=== PATIENT | female | born 1975 | race Hispanic/Latino ===

== ENCOUNTER 2017-07-16 17:52 | Emergency (ER) | payer OTHER ==
[2017-07-16] MEDS ORDERED: NACL 0.9% 1000 ML 1,000 ML IV ONE (21:17)
--- NOTE | 2017-07-16 21:30 | Emergency Department Report ---
ED General Adult HPI - General Chief complaint: Upper Respiratory Infection Stated complaint: SICK FEVER, CHILLS, GENERAL SICKNESS Time Seen by Provider: 07/16/17 20:56 Source: patient Mode of arrival: Ambulatory Limitations: No Limitations - History of Present Illness Initial comments: PT c/o being sick for three days. PT states she is here for antibiotics. PT states she has had fevers and chills for two days. PT states her Tmax was 103.3. PT states she was taking Motrin and Theraflu for her symptoms, did not take any today. PT states today she started having diarrhea, multiple episodes of watery diarrhea. PT reports decrease in appetite, back ache ("from laying in bed for a day and a half") and dark urine. PT states her urine "feels hot" when it comes out. She states it feels hot due to her fever. PT denies dysuria. MD Complaint: fever -: Gradual, days(s) (3) Location: back Severity scale (0 -10): 10 Quality: aching (entire body hurts) Improves with: medication Associated Symptoms: fever/chills, loss of appetite, malaise, nausea/vomiting. denies: chest pain Treatments Prior to Arrival: none - Related Data Previous Rx's Medication Instructions Recorded Last Taken Type Penicillin Vk [Veetids TAB] 500 mg PO QID #40 tablet 04/07/13 Unknown Rx traMADol [Ultram 50 MG tab] 50 mg PO Q6HR PRN #12 tablet 04/07/13 Unknown Rx Allergies Allergy/AdvReac Type Severity Reaction Status Date / Time No Known Allergies Allergy Unverified 04/07/13 15:22 ED Review of Systems ROS: Stated complaint: SICK FEVER, CHILLS, GENERAL SICKNESS Other details as noted in HPI Comment: All other systems reviewed and negative Constitutional: chills, fever, malaise ENT: congestion. denies: ear pain, throat pain Respiratory: cough Cardiovascular: denies: chest pain Gastrointestinal: nausea, diarrhea. denies: abdominal pain, vomiting Genitourinary: other (decreased urine, dark urine, urine feels "hot"). denies: urgency, dysuria, frequency Neurological: denies: headache ED Past Medical Hx - Past Medical History Hx Headaches / Migraines: Yes - Surgical History Past Surgical History?: No - Social History Smoking Status: Current Every Day Smoker Substance Use Type: Alcohol - Medications Home Medications: Home Medications Medication Instructions Recorded Confirmed Last Taken Type Penicillin Vk [Veetids TAB] 500 mg PO QID #40 tablet 04/07/13 Unknown Rx traMADol [Ultram 50 MG tab] 50 mg PO Q6HR PRN #12 tablet 04/07/13 Unknown Rx ED Physical Exam - General Limitations: No Limitations General appearance: alert, in no apparent distress - Head Head exam: Present: atraumatic, normocephalic, normal inspection - Eye Eye exam: Present: normal appearance, PERRL. Absent: conjunctival injection - ENT ENT exam: Present: normal orophraynx, mucous membranes moist, TM's normal bilaterally, normal external ear exam, other (wide spread dental decay ) - Neck Neck exam: Present: normal inspection, full ROM. Absent: lymphadenopathy - Respiratory Respiratory exam: Present: normal lung sounds bilaterally. Absent: respiratory distress, wheezes, chest wall tenderness - Cardiovascular Cardiovascular Exam: Present: regular rate, normal rhythm, normal heart sounds - GI/Abdominal GI/Abdominal exam: Present: soft, hyperactive bowel sounds. Absent: tenderness - Extremities Exam Extremities exam: Present: normal inspection, full ROM - Back Exam Back exam: Present: normal inspection, full ROM. Absent: tenderness, CVA tenderness (R), CVA tenderness (L) - Neurological Exam Neurological exam: Present: alert, oriented X3, normal gait - Psychiatric Psychiatric exam: Present: normal affect, normal mood - Skin Skin exam: Present: warm, dry, intact, normal color ED Course Vital Signs 07/16/17 18:10 Temperature 98.0 F Pulse Rate 94 H Respiratory 20 Rate Blood Pressure 110/77 O2 Sat by Pulse 97 Oximetry - Reevaluation(s) Reevaluation #1: 07/16/17 22:14 PT refused Zofran and Toradol. PT states her stomach feels better and her back no longer hurts. PT tolerating po fluids. PT Aware of lab results. - Pulse Oximetry Interpretation Digit-Finger Initial Pulse Oximetry Readin Actions Taken: none ED Medical Decision Making - Lab Data Result diagrams: 07/16/17 21:23 07/16/17 21:23 Laboratory Results - last 72 hr 07/16/17 07/16/17 07/16/17 21:23 21:23 Unknown WBC 8.2 RBC 4.64 Hgb 14.8 H Hct 42.5 MCV 92 MCH 32 MCHC 35 H RDW 14.4 Plt Count 238 Lymph % (Auto) 32.6 [place] % (Auto) 12.0 H Eos % (Auto) 0.1 Baso % (Auto) 0.7 Lymph # 2.7 [place] # 1.0 H Eos # 0.0 Baso # 0.1 Seg Neutrophils % 54.6 Seg Neutrophils # 4.5 Sodium 134 L Potassium 3.9 Chloride 97.2 L Carbon Dioxide 20 L Anion Gap 21 BUN 9 Creatinine 0.7 Estimated GFR > 60 BUN/Creatinine Ratio 13 Glucose 99 Calcium 8.8 Total Bilirubin 0.30 AST 16 ALT 8 Alkaline Phosphatase 64 Total Protein 6.9 Albumin 4.3 Albumin/Globulin Ratio 1.7 Urine Color Isabel Urine Turbidity Cloudy Urine pH 5.0 Ur Specific [place] 1.029 Urine Protein 30 mg/dl Urine Glucose (UA) Neg Urine Ketones 80 Urine Blood Neg Urine Nitrite Neg Urine Bilirubin Neg Urine Urobilinogen < 2.0 Ur Leukocyte Esterase Lg Urine WBC (Auto) 5.0 Urine RBC (Auto) 1.0 U Epithel Cells (Auto) 2.0 Urine Bacteria (Auto) 1+ Urine Mucus Few Urine HCG, Qual Negative - Differential Diagnosis viral uri, myalgia, uti, dehydration Critical Care Time: No Critical care attestation.: If time is entered above; I have spent that time in minutes in the direct care of this critically ill patient, excluding procedure time. ED Disposition Clinical Impression: Viral syndrome, Dehydration Disposition: DC-01 TO HOME OR SELFCARE Is pt being admited?: No Does the pt Need Aspirin: No Condition: Stable Instructions: Viral Syndrome (ED), Dehydration (ED) Additional Instructions: Rest Increase fluids Continue OTC Motrin as needed for aches and pains Follow up with PCP in 3-5 days return to the ED if worsening or concerns Referrals: MARTHA NOBLE MD [Primary Care Provider] - 3-5 Days TAD ROBERTS MD [Staff Physician] - 3-5 Days Time of Disposition: 22:16
[2017-07-16 21:32] LABS: Basophils # (Auto) 0.1 K/mm3 (0.0-0.1); Basophils % (Auto) 0.7 % (0.0-1.8); Eosinophils % (Auto) 0.1 % (0.0-4.3); Hematocrit 42.5 % (30.3-42.9); Hemoglobin 14.8 gm/dl (10.1-14.3); Lymphocytes # (Auto) 2.7 K/mm3 (1.2-5.4); Lymphocytes % (Auto) 32.6 % (13.4-35.0); Mean Corpuscular HGB Conc 35 % (30-34); Mean Corpuscular Hemoglobin 32 pg (28-32); Mean Corpuscular Volume 92 fl (79-97); Platelet Count 238 K/mm3 (140-440); Red Blood Count 4.64 M/mm3 (3.65-5.03); Red Cell Distribution Width 14.4 % (13.2-15.2)
[2017-07-16 21:54] LABS: Bacteria,Urine 1+ /HPF (Negative); Bilirubin,Urine NEG (Negative); Blood,Urine NEG (Negative); Color,Urine Amber (Yellow); Mucus,Urine FEW /HPF; Nitrite,Urine NEG (Negative); Urobilinogen,Urine < 2.0 mg/dL (<2.0)
[2017-07-16 21:54] LABS: Alanine Aminotransferase 8 units/L (7-56); Albumin 4.3 g/dL (3.9-5); BUN/Creatinine Ratio 13; Blood Urea Nitrogen 9 mg/dL (7-17); Calcium 8.8 mg/dL (8.4-10.2); Hemolysis Index 7
[2017-07-16 21:55] LABS: HCG Qualitative,Urine Negative (Negative)
[2017-07-16] MEDS ORDERED: TORADOL IV ONE (21:59)
[2017-07-16] MEDS: ZOFRAN IV ONE ×2 (22:11→22:12)
[2017-07-16 22:49] VITALS: BP 117/67
== END 2017-07-16 22:48 | disposition home or self-care (01) ==
LOC: ED 17:52
DX: B34.9 Viral infection, unspecified (principal); E86.0 Dehydration; R19.7 Diarrhea, unspecified; R53.81 Other malaise; G43.909 Migraine, unspecified, not intractable, without status migrainosus; F17.200 Nicotine dependence, unspecified, uncomplicated
CPT/HCPCS: 36415; 80053; 81001; 81025; 85025; 96360; 99283; J1885; J2405; J7030

== ENCOUNTER 2019-12-15 14:34 | Emergency (ER) | payer SELFPAY ==
[2019-12-15 14:57] VITALS: BP 141/97
--- NOTE | 2019-12-15 16:10 | Emergency Department Report ---
Chief Complaint: Nausea/Vomiting/Diarrhea Stated Complaint: NAUSEA Time Seen by Provider: 12/15/19 16:07 - HPI History of Present Illness: 44-year-old female presents to the emergency room complaining of nausea for 2 days. Patient denies any abdominal pain denies any vomiting. Patient is concerned that she may have a hiatal hernia as most of her family does. Patient denies any fever chills. Patient does not have a primary care provider. - Exam Vital Signs: Vital Signs 12/15/19 14:56 Temperature 97.9 F Pulse Rate 88 Respiratory 20 Rate Blood Pressure 141/97 O2 Sat by Pulse 97 Oximetry Physical Exam: Gen: alert oriented NAD Cardic: regular rate and rhythm no murmurs appreciated Resp: Clear to auscultation bilateral no wheezing no rales or rhonchi. Abdomen: Soft nontender nondistended normal bowel sounds. MSE screening note: Focused history and physical exam performed. Due to findings the following was ordered: 44-year-old female presents to the emergency room complaining of nausea for 2 days. Patient denies any abdominal pain denies any vomiting. Patient is concerned that she may have a hiatal hernia as most of her family does. Patient denies any fever chills. Patient does not have a primary care provider. Discussed with patient that she can follow-up with a primary care provider. Encourage patient to not consume spicy acid foods. Do not eat 2 hours prior to laying down at night. To avoid aspirin products. ED Disposition for MSE Disposition: MED SCREENING EXAM-LEFT Is pt being admited?: No Does the pt Need Aspirin: No Condition: Stable Additional Instructions: Avoid acid foods do not lay down right after eating. Can try [id number] Tums or omeprazole. Follow-up with your primary care provider. Referrals: CHARITO LEVY MD [Staff Physician] - 3-5 Days Forms: Work/School Release Form(ED)
== END 2019-12-15 16:13 | disposition left against medical advice (07) ==
LOC: ED 14:34
DX: R11.0 Nausea (principal)
CPT/HCPCS: 99281

== ENCOUNTER 2022-02-06 04:45 | Emergency (ER) | payer SELFPAY ==
[2022-02-06 08:46] VITALS: BP 144/88
--- NOTE | 2022-02-06 09:11 | Emergency Department Report ---
ED ENT HPI - General Chief complaint: Dental/Oral Stated complaint: TOOTH INFECTION Source: patient Mode of arrival: Ambulatory Limitations: No Limitations - History of Present Illness Initial comments: 46-year-old female presents to the ED complaining dental pain. Patient states she has multiple cavities and needs to follow-up with dentist. She states pain is a current 5 out of 10. She denies any headache. Patient is alert and oriented x3. No acute distress noted no ill appearance noted. Patient states she do not have any dental insurance at present time. MD complaint: tooth pain Onset/Timin -: week(s) Severity: moderate Severity scale (0 -10): 5 Quality: aching Consistency: intermittent Improves with: none Worsens with: none Context- Dental: poor dental care - Related Data Previous Rx's Medication Instructions Recorded Last Taken Type Penicillin Vk [Veetids TAB] 500 mg PO QID #40 tablet 04/07/13 Unknown Rx traMADoL [Ultram 50 MG tab] 50 mg PO Q6HR PRN #12 tablet 04/07/13 Unknown Rx Cetirizine HCl [ZyrTEC] 10 mg PO QAM 14 Days #14 capsule 05/01/18 Unknown Rx Fluticasone [Flonase] 1 spray NS QDAY 14 Days #1 bottle 05/01/18 Unknown Rx methylPREDNISolone [Medrol Dose 4 mg PO DAILY #1 tab.ds.pk 05/01/18 Unknown Rx Hi] Clindamycin [Clindamycin CAP] 600 mg PO BID 7 Days #14 capsule 02/06/22 Unknown Rx Ibuprofen [Motrin] 800 mg PO Q8HR PRN 15 Days #30 02/06/22 Unknown Rx tablet Allergies Allergy/AdvReac Type Severity Reaction Status Date / Time ranitidine Allergy Itching Verified 05/01/18 20:18 ED Dental HPI - General Chief complaint: Dental/Oral Stated complaint: TOOTH INFECTION Source: patient Mode of arrival: Ambulatory Limitations: No Limitations - Related Data Previous Rx's Medication Instructions Recorded Last Taken Type Penicillin Vk [Veetids TAB] 500 mg PO QID #40 tablet 04/07/13 Unknown Rx traMADoL [Ultram 50 MG tab] 50 mg PO Q6HR PRN #12 tablet 04/07/13 Unknown Rx Cetirizine HCl [ZyrTEC] 10 mg PO QAM 14 Days #14 capsule 05/01/18 Unknown Rx Fluticasone [Flonase] 1 spray NS QDAY 14 Days #1 bottle 05/01/18 Unknown Rx methylPREDNISolone [Medrol Dose 4 mg PO DAILY #1 tab.ds.pk 05/01/18 Unknown Rx Hi] Clindamycin [Clindamycin CAP] 600 mg PO BID 7 Days #14 capsule 02/06/22 Unknown Rx Ibuprofen [Motrin] 800 mg PO Q8HR PRN 15 Days #30 02/06/22 Unknown Rx tablet Allergies Allergy/AdvReac Type Severity Reaction Status Date / Time ranitidine Allergy Itching Verified 05/01/18 20:18 ED Review of Systems ROS: Stated complaint: TOOTH INFECTION Other details as noted in HPI Constitutional: denies: chills, fever Eyes: denies: eye pain, eye discharge, vision change ENT: denies: ear pain, throat pain Respiratory: denies: cough, shortness of breath, wheezing Cardiovascular: denies: chest pain, palpitations Endocrine: no symptoms reported Gastrointestinal: denies: abdominal pain, nausea, diarrhea Genitourinary: denies: urgency, dysuria, discharge Musculoskeletal: denies: back pain, joint swelling, arthralgia Skin: denies: rash, lesions Neurological: denies: headache, weakness, paresthesias Psychiatric: denies: anxiety, depression Hematological/Lymphatic: denies: easy bleeding, easy bruising ED Past Medical Hx - Past Medical History Hx Headaches / Migraines: Yes - Social History Smoking Status: Never Smoker Substance Use Type: None - Medications Home Medications: Home Medications Medication Instructions Recorded Confirmed Last Taken Type Penicillin Vk [Veetids TAB] 500 mg PO QID #40 tablet 04/07/13 Unknown Rx traMADoL [Ultram 50 MG tab] 50 mg PO Q6HR PRN #12 tablet 04/07/13 Unknown Rx Cetirizine HCl [ZyrTEC] 10 mg PO QAM 14 Days #14 capsule 05/01/18 Unknown Rx Fluticasone [Flonase] 1 spray NS QDAY 14 Days #1 bottle 05/01/18 Unknown Rx methylPREDNISolone [Medrol Dose 4 mg PO DAILY #1 tab.ds.pk 05/01/18 Unknown Rx Hi] Clindamycin [Clindamycin CAP] 600 mg PO BID 7 Days #14 capsule 02/06/22 Unknown Rx Ibuprofen [Motrin] 800 mg PO Q8HR PRN 15 Days #30 02/06/22 Unknown Rx tablet ED Physical Exam - General Limitations: No Limitations General appearance: alert, in no apparent distress - Head Head exam: Present: atraumatic, normocephalic - Eye Eye exam: Present: normal appearance - ENT ENT exam: Present: mucous membranes moist - Expanded ENT Exam Expanded Teeth exam: Present: dental caries - Neck Neck exam: Present: normal inspection - Respiratory Respiratory exam: Present: normal lung sounds bilaterally. Absent: respiratory distress - Cardiovascular Cardiovascular Exam: Present: regular rate, normal rhythm. Absent: systolic murmur, diastolic murmur, rubs, gallop - GI/Abdominal GI/Abdominal exam: Present: soft, normal bowel sounds - Extremities Exam Extremities exam: Present: normal inspection - Back Exam Back exam: Present: normal inspection - Neurological Exam Neurological exam: Present: alert, oriented X3 - Psychiatric Psychiatric exam: Present: normal affect, normal mood - Skin Skin exam: Present: warm, dry, intact, normal color. Absent: rash ED Course Vital Signs 02/06/22 02/06/22 02/06/22 04:50 08:44 08:45 Temperature 98.6 F 97.9 F Pulse Rate 98 H 81 Respiratory 18 Rate Blood Pressure 149/93 Blood Pressure 144/88 [Right] O2 Sat by Pulse 96 99 99 Oximetry ED Medical Decision Making - Medical Decision Making 46-year-old female presents to the ED complaining dental pain. Patient states she has multiple cavities and needs to follow-up with dentist. She states pain is a current 5 out of 10. She denies any headache. Patient is alert and oriented x3. No acute distress noted no ill appearance noted. Patient states she do not have any dental insurance at present time. Physical examination patient has multiple dental cavities and dental decay noted. No trismus, no drooling noted. Rechecked the patient is resting quietly , comfortable and feeling better. I discussed the results of diagnostic study, my clinical impression and the plan for further treatment with the patient. Patient agrees with plan and discharge at this present time. All question addressed. I have given the patient instruction regarding a diagnosis ,expectation ,follow- up and return precaution. I explained to the patient that emergent condition may arise and to return to the ED for new worsen and any new persisting condition. I have explained the importance of following up with the primary care physician or referral physician listed below has instructed. The patient verbalized understanding of discharge instruction. Critical care attestation.: If time is entered above; I have spent that time in minutes in the direct care of this critically ill patient, excluding procedure time. ED Disposition Clinical Impression: Dental cavities Disposition: HOME / SELF CARE / HOMELESS Is pt being admited?: No Does the pt Need Aspirin: No Condition: Stable Instructions: Dental Abscess, [id number], Preventive Dental Care, Adult Additional Instructions: Take medication as prescribed Return to ED for any worsening symptom Prescriptions: Clindamycin [Clindamycin CAP] 600 mg PO BID 7 Days #14 capsule Ibuprofen [Motrin] 800 mg PO Q8HR PRN 15 Days #30 tablet PRN Reason: Pain, Mild (1-3) Referrals: [facility] [Outside] - 3-5 Days Forms: Work/School Release Form(ED) Time of Disposition: 09:11
== END 2022-02-06 09:28 | disposition home or self-care (01) ==
LOC: ED 04:45
DX: K02.9 Dental caries, unspecified (principal); G43.909 Migraine, unspecified, not intractable, without status migrainosus; Z91.09 Other allergy status, other than to drugs and biological substances
CPT/HCPCS: 99282